=== PATIENT | male | born 1990 | race Caucasian/White ===

== ENCOUNTER 2017-02-20 22:14 | Emergency (ER) | payer SELFPAY ==
[2017-02-20 22:36] VITALS: BP 142/82; PULSE 69; TEMP 98.1; BMI 25.0
--- NOTE | 2017-02-21 00:31 | PDOC ---
History of Present Illness - General Chief Complaint: Sore Throat Stated Complaint: SORE THROAT Time Seen by Provider: 02/20/17 23:43 - History of Present Illness Initial Comments: 02/21/17 00:30 CHIEF COMPLAINT: cough, sore throat HISTORY OF PRESENT ILLNESS: 26 yo M with no significant PMH presents to ED with cough and sore throat x 1 week. Patient states that he has been coughing "for a whole week" and over the past 1-2 days he has been experience a swollen throat and difficulty/painful swallowing. Patient denies any fever, chills, nausea, vomiting, diarrhea. PAST MEDICAL HISTORY: Denies past medical history FAMILY HISTORY: Denies SOCIAL HISTORY: Denies tobacco, alcohol, illicit drug use. SURGICAL HISTORY: Denies ALLERGIES: No known drug allergies REVIEW OF SYSTEMS General/Constitutional: Denies fever or chills. Denies weakness. HEENT: Sore throat. Cardiovascular: Denies chest pain or shortness of breath. Respiratory: Cough x 1 week. Gastrointestinal: Denies nausea, vomiting, diarrhea. Skin: Denies rash. PHYSICAL EXAM General Appearance: Well-appearing, appropriately dressed. No apparent distress. HEENT: No swelling to lips, tongue, mouth, throat, or neck. No peritonsillar abscess appreciated. No exudate to tonsils bilaterally. EOMI, PERRLA, normal ENT inspection, normal voice, TMs normal, pharynx normal. No conjunctival pallor. No photophobia, scleral icterus. Respiratory/Chest: Lungs CTAB. No shortness of breath, chest tenderness, respiratory distress, accessory muscle use. No crackles, rales, rhonchi, stridor , wheezing, dullness Cardiovascular: RRR. S1, S2. Integumentary: Appropriate color, dry, warm. No cyanosis, erythema, jaundice or rash Neurologic: protection agent II-XII intact. Fully oriented, alert. Appropriate mood/affect. Motor strength 5/5. No appreciable EOM palsy, facial droop or sensory deficit. Past History - Past Medical History Home Medications: Ambulatory Orders Azithromycin [Zithromax 250mg Tablets -] 250 mg PO ASDIR #6 tablet 02/21/17 - Suicide/Smoking/Psychosocial Hx Smoking History: Never smoked Have you smoked in the past 12 months: No Information on smoking cessation initiated: No Hx Alcohol Use: No Drug/Substance Use Hx: No *Physical Exam - Vital Signs Last Vital Signs Temp Pulse Resp BP Pulse Ox 98.1 F 69 19 142/82 100 02/20/17 22:33 02/20/17 22:33 02/20/17 22:33 02/20/17 22:33 02/20/17 22:33 Medical Decision Making - Medical Decision Making 02/21/17 00:39 26 yo M with no significant PMH presents to ED with cough and sore throat x 1 week. -flu, strep swabs 02/21/17 01:47 flu/strep negative. given duration of symptoms and lack of relief from OTC medications ( dextromethorphan/guaifenesin), will rx antibiotics. Advised patient to take medication as prescribed and follow up with PCP if symptoms persist. Advised patient of signs and symptoms for return to ED. Patient verbalized understanding and agrees to plan. *DC/Admit/Observation/Transfer Diagnosis at time of Disposition: Bronchitis - Discharge Dispostion Disposition: HOME Condition at time of disposition: Stable Admit: No - Prescriptions Prescriptions: Azithromycin [Zithromax 250mg Tablets -] 250 mg PO ASDIR #6 tablet - Referrals - Patient Instructions Printed Discharge Instructions: DI for Acute Bronchitis Additional Instructions: Please take medications as prescribed and complete the entire course of antibiotics. You may take Motrin for your throat pain. Follow up with your primary care doctor if symptoms persist past 3-5 days. If you develop fever, chills, vomiting, diarrhea, rash, or you feel as if your throat is closing up and you can't breathe, please return to the ER immediately. - Post Discharge Activity
== END 2017-02-21 02:17 | disposition home or self-care (01) ==
LOC: JER 22:14
DX: J40 Bronchitis, not specified as acute or chronic (principal)
CPT/HCPCS: 87070; 87430; 87804; 99281-25

== ENCOUNTER 2024-01-25 22:32 | Emergency (ER) | payer SELFPAY ==
[2024-01-25 22:53] VITALS: RESP 17; TEMP 98.8; BMI 27.4
[2024-01-25] MEDS ORDERED: KETOROLAC TROMETHAMINE 30 MG/1 ML VIAL ONE (22:53)
[2024-01-25] MEDS: KETOROLAC TROMETHAMINE 30 MG/1 ML VIAL IM ONE (23:18)
[2024-01-26 04:44] VITALS: BP 142/88; PULSE 71
== END 2024-01-25 23:25 | disposition home or self-care (01) ==
LOC: FER 22:32
PROC: 3E0233Z Introduction of Anti-inflammatory into Muscle, Percutaneous Approach (ICD-10-PCS; principal; 2024-01-25)
DX: S29.011A Strain of muscle and tendon of front wall of thorax, initial encounter (principal); J40 Bronchitis, not specified as acute or chronic; R05.9 Cough, unspecified; X58.XXXA Exposure to other specified factors, initial encounter
CPT/HCPCS: 71046-TC-FY; 93005; 99284-25